=== PATIENT | female | born 1990 | race Caucasian/White ===

== ENCOUNTER 2016-12-28 09:51 | Emergency (ER) | payer OTHER | END 2016-12-28 14:00 | disposition home or self-care (01) | LOC: ER 09:51 | DX: L02.512 Cutaneous abscess of left hand (principal); L03.114 Cellulitis of left upper limb; F17.210 Nicotine dependence, cigarettes, uncomplicated; Z79.899 Other long term (current) drug therapy | CPT/HCPCS: 36415; 96365; 96375; J1885; J3370 ==